=== PATIENT | male | born 1990 | race Caucasian/White ===

== ENCOUNTER 2024-07-17 07:25 | Emergency (ER) | payer OTHER ==
[2024-07-17 07:33] VITALS: BP 140/85; PULSE 61; RESP 17; TEMP 98.4; BMI 25.8
[2024-07-17] MEDS ORDERED: KETOROLAC TROMETHAMINE 15 MG/ML VIAL ONE (08:27)
[2024-07-17] MEDS: KETOROLAC TROMETHAMINE 15 MG/ML VIAL IM ONE (08:32)
== END 2024-07-17 09:35 | disposition home or self-care (01) ==
LOC: FER 07:25 → EDBD 07:25 → FER 09:35
PROC: 3E0233Z Introduction of Anti-inflammatory into Muscle, Percutaneous Approach (ICD-10-PCS; principal; 2024-07-17)
DX: M20.012 Mallet finger of left finger(s) (principal); W23.2XXA Caught, crushed, jammed or pinched between a moving and stationary object, initial encounter; Y99.0 Civilian activity done for income or pay
CPT/HCPCS: 73110-TC-LT-FY; 73130-TC-LT-FY; 99284-25